=== PATIENT | female | born 1990 | race Caucasian/White ===

== ENCOUNTER 2016-11-20 23:15 | Outpatient (CLI) | payer MEDICAID ==
[~2016-11-20] VITALS: Ht 152.4 cm; Wt 85.8 kg
[~2016-11-20 23:15] MED LIST: PREN-39 PO
[2016-11-21 00:35] VITALS: BP 107/58; PULSE 100; RESP 18
[2016-11-21 01:45] LABS: ADD UMIC YES; UR BILIRUBIN (Dip) NEGATIVE (NEGATIVE); UR BLOOD (Dip) 2+ (NEGATIVE); UR CLARITY SLIGHTLY CLOUDY (CLEAR); UR COLOR LT. YELLOW (YELLOW); UR GLUCOSE (Dip) NEGATIVE (NEGATIVE); UR LEUKOCYTE ESTERASE (Dip) 2+ (NEGATIVE); UR NITRITE (Dip) NEGATIVE (NEGATIVE); UR TOTAL PROTEIN (Dip) NEGATIVE (NEGATIVE); UR UROBILINOGEN (Dip) 0.2 E.U./dL (0.1-1.0)
[2016-11-21 01:47] LABS: UR KETONES (Dip) 1+ (NEGATIVE)
--- NOTE | 2016-11-21 02:08 | RADRPT ---
PROCEDURE: Limited OB ultrasound CLINICAL INDICATION: Rupture of membranes. TECHNIQUE: Limited sonographic evaluation of the gravid uterus was performed to assess the amnioti c fluid volume. COMPARISON: None. FINDINGS: Single live intrauterine with cardiac heart rate of 137 beats per minute is identifi ed. The amniotic -fluid volume is 11.46 cm,. Fetus is in cephalic presentation. The placenta is l ocated left lateral. IMPRESSION: 1. Amniotic fluid volume 11.46 cm. RPTAT: HMVK .Charles Mann MD, Date Time Electronically viewed and signed by .Charles Mann MD, on 11/21/2016 02:08 .K/
[2016-11-21 02:14] LABS: UR BACTERIA OCCASIONAL /HPF (NONE SEEN); UR SQUAMOUS EPITHELIAL CELL FEW /HPF (FEW)
--- NOTE | 2016-11-21 04:04 | TRIAGE ---
OB Triage Datetime Report Generated by CPN: 11/21/2016 04:03 Datetime: 11/21/2016 02:18 Stage of : OB Triage Labor Evaluation Monitor Mode: External Quality: Mild Pattern: Normal: <= 5 Contractions in 10 Minutes Resting Tone [place]: Relaxed Heart Rate FHR Baseline Rate: 130 Monitor Mode: External US FHR Baseline Changes: No Baseline Change Variability: Moderate 6-25 bpm Accelerations: 15X15 Decelerations: None Category: Category I Datetime: 11/21/2016 01:10 Stage of : OB Triage Labor Evaluation Monitor Mode: External Quality: Mild Pattern: Normal: <= 5 Contractions in 10 Minutes Resting Tone [place]: Relaxed Heart Rate FHR Baseline Rate: 130 Monitor Mode: External US FHR Baseline Changes: No Baseline Change Variability: Moderate 6-25 bpm Accelerations: 15X15 Decelerations: None Category: Category I Datetime: 11/21/2016 00:08 Stage of : OB Triage Labor Evaluation Monitor Mode: External Quality: Mild Pattern: Normal: <= 5 Contractions in 10 Minutes Resting Tone [place]: Relaxed Heart Rate FHR Baseline Rate: 130 Monitor Mode: External US FHR Baseline Changes: No Baseline Change Variability: Moderate 6-25 bpm Accelerations: 15X15 Decelerations: None Category: Category I Vaginal Exam Dilatation (cms): 2.5 Effacement (%): 80 Station: -2 Exam By: Hank Allen Amniotic Fluid Amount: None Amniotic Fluid Odor: None Vaginal Bleeding: None Pool: Negative Nitrazine: Negative Cervix, Consistency: Soft Cervix, Position: Posterior Presentation 'A': Cephalic Datetime: 11/20/2016 23:42 Time of Arrival: 11/20/2016 23:10 EGA: 37.4 Arrived By: Wheelchair Arrived From: Home Chief Complaint: c/o ucs and leaking sm amt fluid since am Movement: Present Contractions: Irregular Time Contractions Began: 11/20/2016 16:30 Contractions: Q8-10 Rupture of Membranes: Unsure Vaginal Bleeding: None Vaginal Discharge: Present Recent Sexual Intercouse: Denies Abdominal Trauma: Not Applicable Patient Complaints: Contractions Time Provider Notified: 11/21/2016 00:10 Provider Notified: Dr Amin Initial Plan: EFM, SVE, ROM PLUS, BPP, UA Datetime: 11/20/2016 23:25 Stage of : OB Triage Maternal Assessment Level of Consciousness: Fully Conscious Headache: Denies Blurred Vision: No Respiratory Effort: Unlabored Nausea/Vomiting: Denies RUQ Epigastric Pain: Denies Facial Edema: None Labor Evaluation Monitor Mode: External Resting Tone [place]: Relaxed Heart Rate FHR Baseline Rate: 130 Monitor Mode: External US Pain Assessment Pain Scale: 3 Pain Presence: Intermittent Pain Type: Contraction Pain Location: Abdomen
--- NOTE | 2016-11-21 09:20 | PN ---
Triage Information Date/Time Weeks of Gestation 37w4d : 4 Para: 3 Diabetes: none Hypertention: none Additional information uterine contraactions started 1630 q8-10 min vaginal discharge liquid cold sx for 2days Objective Vital Signs Date Time Temp Pulse Resp B/P Pulse Ox O2 Delivery O2 Flow Rate FiO2 11/21/16 00:35 97.3 100 18 107/58 Room Air Contractions: >10 Minutes Apart Exam VE 2-3 80% -2 re check in 3hr no significant change ROM plus neg spec exam cottage cheese discharge EFM occ U.C U/A ++ leuko estrase wbc 10-25 urine culture sent CVA neg for tenderness Results/Medications Results 24 hrs Laboratory Tests Test 11/20/16 23:30 11/21/16 01:00 Urine Color LT. YELLOW Urine Clarity SLIGHTLY CLOUDY Urine pH Urine Specific [place] Urine Ketones 1+ Urine Nitrite NEGATIVE Urine Bilirubin NEGATIVE Urine Urobilinogen 0.2 E.U./dL Urine Leukocyte Esterase 2+ H Urine Microscopic RBC 2-5 Urine Microscopic WBC 10-25 Urine Squamous Epithelial Cells FEW Urine Calcium Oxalate Crystals FEW Urine Bacteria OCCASIONAL Urine Hemoglobin 2+ H Urine Glucose NEGATIVE Urine Total Protein NEGATIVE Membranes Rupture NEGATIVE Medications cephalexin 500mg q6hr #28 Imaging Results MARCIAL 11.5 Assessment/Plan IUP 37w4d NIL cystitis common cold plan discharge home with routine labor inastructions RTH prn CHAD MARC MD Nov 21, 2016 09:16
[2016-11-22] MEDS ORDERED: CEPH500C PO (19:15)
== END 2016-11-21 03:16 | disposition home or self-care (01) ==
LOC: L-D 23:15 → OBT 23:15
PROVIDERS: ATTEND Obstetrics & Gynecology
DX: O23.13 Infections of bladder in pregnancy, third trimester (principal); Z3A.37 37 weeks gestation of pregnancy
CPT/HCPCS: 76815; 81001; 84112; 87086; Z7500; G0463

== ENCOUNTER 2016-11-22 18:10 | Outpatient (CLI) | payer MEDICAID ==
[~2016-11-22] VITALS: Ht 152.4 cm; Wt 84.7 kg
[2016-11-22 19:12] VITALS: Ht 152.4 cm; Wt 84.7 kg
[2016-11-22 19:13] VITALS: BP 111/62; PULSE 90
[2016-11-22] MEDS ORDERED: CEPH500C PO (19:15)
--- NOTE | 2016-11-22 20:57 | PN ---
Triage Information Date/Time Weeks of Gestation 37 6/7 : 4 Para: 3 Objective Vital Signs Date Time Temp Pulse Resp B/P Pulse Ox O2 Delivery O2 Flow Rate FiO2 11/22/16 19:13 98.3 90 111/62 Heart Rate Comments reactive Contractions: 6-10 Minutes Apart Exam 50/-3 Assessment/Plan at 37 6/7 weeks with contractions, not in active labor -discharge home with labor precautions -f/u with OB PRITESH CHERRY Nov 22, 2016 20:57
== END 2016-11-22 20:55 | disposition home or self-care (01) ==
LOC: OBT 18:10 → L-D 18:10 → OBT 20:55
PROVIDERS: ATTEND Obstetrics & Gynecology
DX: O62.9 Abnormality of forces of labor, unspecified (principal); Z3A.37 37 weeks gestation of pregnancy
CPT/HCPCS: G0463

== ENCOUNTER 2016-12-13 20:17 | Inpatient (IN) | payer MEDICAID ==
[~2016-12-13] VITALS: Ht 152.4 cm; Wt 88.0 kg
[~2016-12-13 20:17] MED LIST changes: +CEPH500C PO
[2016-12-13 20:36] VITALS: Ht 152.4 cm; Wt 88.0 kg
[2016-12-13 20:37] VITALS: BP 111/65; PULSE 90; RESP 18
[2016-12-13] MEDS ORDERED: BUTORPHANOL 2 MG INJ IV PRN (21:30)
[2016-12-13] MEDS ORDERED: AMPICILLIN 2 GM/NS (PMX) 100 ML IV ONE (21:30)
[2016-12-13] MEDS ORDERED: METHYLERGONOVINE 0.2 MG INJ IM PRN (21:30)
[2016-12-13] MEDS ORDERED: CARBOPROST 250 MCG INJ IM PRN (21:30)
[2016-12-13] MEDS ORDERED: MISOPROSTOL 200 MCG TAB PR PRN (21:30)
[2016-12-13] MEDS ORDERED: OXYTOCIN 30 UNITS/LR 500 ML IV PRN (21:30)
[2016-12-13] MEDS ORDERED: ACETAMINOPHEN/CODEINE #3 TAB PO PRN (21:30)
[2016-12-13] MEDS ORDERED: LIDOCAINE 1% (MPF) 30 ML INJ INJ PRN (21:30)
[2016-12-13] MEDS ORDERED: IBUPROFEN 600 MG TAB PO PRN (21:30)
[2016-12-13] MEDS ORDERED: OXYTOCIN 30 UNITS/LR 500 ML IV SCH ×3 (21:30)
[2016-12-13] MEDS ORDERED: LACTATED RINGER'S 1,000 ML IV PRN (21:33)
[2016-12-13] MEDS: LACTATED RINGER'S 1,000 ML IV SCH (22:57)
--- NOTE | 2016-12-13 23:15 | HP ---
Date/Time of Note Date/Time of Note DATE: 12/13/16 TIME: 23:02 OB - History Hx of Present Free Text/Dictation 26y,o uterine contractions since 1200 today at 40w6d VE 3cm 60% -3 UC irregular admitted for expectant management more likely augmentation Chief Complaint: UC's Estimated Due Date: Dec 07, 2016 : 4 Para: 3 Spontaneous : 0 Therapeutic : 0 Obstetrical Complications: None Medical Complications: None Past Family/Social History * Past Medical, Surgical, Family and Obstetric Histories reviewed from chart. Blood Type: Unknown Rubella: unknown RPR/VDRL: Unknown GBS Status: Unknown HBsAG: Unknown OB Admission Exam Vital Signs Vital Signs Vital Signs Date Time Temp Pulse Resp B/P Pulse Ox O2 Delivery O2 Flow Rate FiO2 12/13/16 20:37 98.2 90 18 111/65 Room Air Physical Exam HEENT: WNL Heart: Rhythm Normal Lungs: Clear, Equal Abdomen: WNL Extremities: Normal Reflexes: Normal Cervical Dilatation: 3cm Effacement: Other (60%) Station: -3 Membranes: Intact Amniotic Fluid: Unevaluable Heart Rate: 140's Accelerations: Accelerations Present Decelerations: No Decelerations Varibility: Moderate Contractions on Admission: >10 Minutes Apart Intensity: Mild OB Assessment/Plan Other Assessment: [id number] In early labor Plan: Expectant Management Other plan: CHAD Mcgregor MD Dec 13, 2016 23:12
[2016-12-14 00:08] LABS: ADD SCAN DIFF NO
[2016-12-14 00:12] LABS: BASOPHILS % 0.2 % (0.0-2.0); EOSINOPHILS # 0.2 10^3/ul (0.0-0.5); EOSINOPHILS % 1.8 % (0.0-7.0); HEMOGLOBIN 12.4 g/dl (12.0-16.0); LYMPHOCYTES # 2.7 10^3/ul (0.8-2.9); LYMPHOCYTES % 26.3 % (15.0-51.0); MEAN CORPUSCULAR HEMOGLOBIN 27.3 pg (29.0-33.0); MEAN CORPUSCULAR HGB CONC 32.6 g/dl (32.0-37.0); MEAN CORPUSCULAR VOLUME 83.7 fl (82.0-101.0); MEAN PLATELET VOLUME 12.5 fl (7.4-10.4); MONOCYTE # 0.6 10^3/ul (0.3-0.9); MONOCYTES % 6.3 % (0.0-11.0); NEUTROPHIL # 6.6 10^3/ul (1.6-7.5); PLATELET COUNT 174 10^3/UL (140-415); RED BLOOD COUNT 4.54 10^6/ul (4.20-5.40); RED CELL DISTRIBUTION WIDTH 15.5 % (11.5-14.5); WHITE BLOOD COUNT 10.1 10^3/ul (4.8-10.8)
[2016-12-14 00:27] LABS: INR 0.96; PROTIME 12.8 Sec (12.2-14.2)
--- NOTE | 2016-12-14 01:11 | TRIAGE ---
OB Triage Datetime Report Generated by CPN: 12/14/2016 01:11 Datetime: 12/13/2016 22:46 Assessment Type: Admission Assessment Vaginal Bleeding: Normal Show Maternal Assessment Level of Consciousness: Fully Conscious DTR's/Clonus: DTRs 2+ Headache: Denies Blurred Vision: No Respiratory Effort: Unlabored Breath Sounds, Left: Clear and Equal Breath Sounds, Right: Clear and Equal Nausea/Vomiting: Denies RUQ Epigastric Pain: Denies Lower Extremities Edema: None Degree: None Upper Extremities Edema: None Degree: None Facial Edema: None Fall Risk Assessment History of Falling: (0) No Secondary Diagnosis: (0) No Ambulatory Aid: (0) Bedrest/Nurse Assist IV Therapy: (0) No Gait: (0) Normal/Bedrest/Immobile Mental Status: (0) Oriented to Own Ability Fall Score: 0 Fall Risk Score Definition: No Risk: No action required Labor Evaluation Frequency: 4-7 Duration (sec)2399: 50-100 Quality: Mild Pattern: Normal: <= 5 Contractions in 10 Minutes Resting Tone [place]: Relaxed Heart Rate FHR Baseline Rate: 120 Variability: Moderate 6-25 bpm Accelerations: 15X15 Decelerations: None Category: Category I Pain Assessment Pain Scale: 0 Pain Presence: None/Denies Pain Type: N/A Membrane Status: Intact Datetime: 12/13/2016 22:40 Vaginal Exam Dilatation (cms): 4.0 Effacement (%): 70 Station: -2 Datetime: 12/13/2016 22:15 Labor Evaluation Frequency: 9-11 Monitor Mode: External Duration (sec)2399: 100-180 Quality: Moderate Pattern: Normal: <= 5 Contractions in 10 Minutes Resting Tone [place]: Relaxed Heart Rate FHR Baseline Rate: 130 Monitor Mode: External US Variability: Moderate 6-25 bpm Accelerations: 15X15 Decelerations: Variable Category: Category II Comments: VARIABLE WENT FROM BASELINE TO 110 AND Back to baseline Datetime: 12/13/2016 21:45 Monitor Mode: External Monitor Mode: External US Datetime: 12/13/2016 21:30 Labor Evaluation Frequency: IRREGULAR Monitor Mode: External Duration (sec)2399: 40-120 Quality: Mild Pattern: Normal: <= 5 Contractions in 10 Minutes Resting Tone [place]: Relaxed Heart Rate FHR Baseline Rate: 125 Monitor Mode: External US FHR Baseline Changes: No Baseline Change Variability: Moderate 6-25 bpm Accelerations: 15X15 Decelerations: None Category: Category I Datetime: 12/13/2016 20:44 Vaginal Exam Dilatation (cms): 3.0 Effacement (%): 60 Station: -3 Exam By: Gricelda CHAN RN Vaginal Bleeding: None Cervix, Consistency: Firm Cervix, Position: Posterior Datetime: 12/13/2016 20:26 Stage of : OB Triage Assessment Type: Triage Time of Arrival: 12/13/2016 20:05 EGA: 40.6 Arrived By: Wheelchair Arrived From: Home Chief Complaint: CONTRACTIONS THAT STARTED @ 1200 Movement: Present Contractions: Irregular Time Contractions Began: 12/13/2016 12:00 Rupture of Membranes: Denies Vaginal Bleeding: None Vaginal Discharge: Denies Recent Sexual Intercouse: Denies Abdominal Trauma: Not Applicable Patient Complaints: None Time Provider Notified: 12/13/2016 21:00 Provider Notified: DR MARC Initial Plan: CALL JAIR VERAS Maternal Assessment Level of Consciousness: Fully Conscious DTR's/Clonus: DTRs 2+; No Clonus Headache: Denies Blurred Vision: No Respiratory Effort: Unlabored; Regular Rhythm; Equal Expansion Breath Sounds, Left: Clear and Equal Breath Sounds, Right: Clear and Equal Nausea/Vomiting: Denies RUQ Epigastric Pain: Denies Lower Extremities Edema: None Degree: None Upper Extremities Edema: None Degree: None Facial Edema: None Temperature Route: Oral Fall Risk Assessment History of Falling: (0) No Secondary Diagnosis: (0) No Ambulatory Aid: (0) Bedrest/Nurse Assist IV Therapy: (0) No Gait: (0) Normal/Bedrest/Immobile Mental Status: (0) Oriented to Own Ability Fall Score: 0 Fall Risk Score Definition: No Risk: No action required Monitor Mode: External Monitor Mode: External US Pain Assessment Pain Scale: 0 Datetime: 11/22/2016 20:55 Stage of : OB Triage Datetime: 11/22/2016 20:45 Labor Evaluation Frequency: q 9 min Monitor Mode: External Duration (sec)2399: 50-90 Quality: Mild Pattern: Normal: <= 5 Contractions in 10 Minutes Resting Tone [place]: Relaxed Heart Rate FHR Baseline Rate: 120 Monitor Mode: External US Variability: Moderate 6-25 bpm Accelerations: 15X15 Decelerations: None Category: Category I Pain Assessment Pain Scale: 0 Pain Presence: None/Denies Pain Type: N/A Pain Assessment Comments: pt stated that she does not feels contraction pain . abdomen soft on pal pation Membrane Status: Intact Datetime: 11/22/2016 19:42 Comments: MONITORS OFF Datetime: 11/22/2016 19:35 Labor Evaluation Frequency: IRREGULAR Monitor Mode: External Duration (sec)2399: 60-90 Quality: Mild Pattern: Normal: <= 5 Contractions in 10 Minutes Resting Tone [place]: Relaxed Heart Rate FHR Baseline Rate: 120 Monitor Mode: External US Variability: Moderate 6-25 bpm Accelerations: 15X15 Decelerations: None Category: Category I Pain Assessment Pain Scale: 0 Pain Presence: None/Denies Pain Type: N/A Membrane Status: Intact Datetime: 11/22/2016 18:47 Stage of : OB Triage Assessment Type: Triage Maternal Assessment Level of Consciousness: Fully Conscious DTR's/Clonus: DTRs 2+; No Clonus Headache: Denies Blurred Vision: No Respiratory Effort: Unlabored; Regular Rhythm; Equal Expansion Breath Sounds, Left: Clear and Equal Breath Sounds, Right: Clear and Equal Nausea/Vomiting: Denies RUQ Epigastric Pain: Denies Facial Edema: None Temperature Route: Axillary Fall Risk Assessment History of Falling: (0) No Secondary Diagnosis: (0) No Ambulatory Aid: (0) Bedrest/Nurse Assist IV Therapy: (0) No Gait: (0) Normal/Bedrest/Immobile Mental Status: (0) Oriented to Own Ability Fall Score: 0 Fall Risk Score Definition: No Risk: No action required Labor Evaluation Frequency: 0 Monitor Mode: External Resting Tone [place]: Relaxed Interventions: Sterile Vaginal Exam Heart Rate FHR Baseline Rate: 125 Monitor Mode: External US Variability: Moderate 6-25 bpm Decelerations: None Category: Category II Pain Assessment Pain Scale: 3 Pain Presence: Intermittent Pain Type: Cramping; Contraction Pain Location: Abdomen Pain Goal: 3 Pain Relief Measures: Comfort Measures Vaginal Exam Dilatation (cms): 3.0 Effacement (%): 50 Station: -3 Exam By: Mike BLEVINS Membrane Status: Intact Datetime: 11/22/2016 18:45 Time of Arrival: 11/15/2016 18:04 EGA: 36.6 Arrived By: Ambulatory Arrived From: Home Chief Complaint: C/O UC'S Q 8-10 MIN, DENIES LEAKING OF FLUID OR BLEEDING Movement: Present Contractions: Regular Contractions: 8-10 Rupture of Membranes: Denies Vaginal Discharge: Denies Recent Sexual Intercouse: Denies Abdominal Trauma: Not Applicable Initial Plan: MONITOR, VE Datetime: 11/21/2016 03:00 Stage of : OB Triage FHR Baseline Changes: No Baseline Change Variability: Moderate 6-25 bpm Accelerations: 15X15 Decelerations: None Vaginal Exam Dilatation (cms): 3.0 Effacement (%): 80 Station: -2 Exam By: Hank Allen Datetime: 11/20/2016 23:42 EGA: 37.4
[2016-12-14 01:53] LABS: BARBITURATES Negative (NEGATIVE); BENZODIAZEPINES Negative (NEGATIVE)
[2016-12-14 01:54] LABS: CANNABINOIDS Negative (NEGATIVE); COCAINE Negative (NEGATIVE); OPIATES Negative (NEGATIVE)
[2016-12-14] MEDS: AMPICILLIN 1 GM/NS (PMX) 50 ML IV SCH ×2 (02:47→06:17)
[2016-12-14] MEDS: LACTATED RINGER'S 1,000 ML IV SCH (02:56)
--- NOTE | 2016-12-14 07:07 | LDN ---
Date/Time of Note Date/Time of Note DATE: 12/14/16 TIME: 07:01 Delivery Summary after placenta delivered ,loosing tale of membrane which was removed by piece s by pieces after sedation with sstadol 2mg complete exploration of uterine cavity with hand only informed the patient with translation by samantha there is possibility of cleaning the utrine cavity in case of heavy bleeding later Weeks of Gestation 41 weeks Placenta Delivered: Spontaneously Meconium: none Episiotomy: No Perineal laceration: 0 Anesthesia type: None Estimated blood loss: 200 Sponge & Needle done & correct: Yes All needle counts correct: Yes Any foreign bodies felt in the: No Problems: Infant Delivery Information Sex Infant Sex: female Apgars 1 Minute: 8 5 Minute: 9 Suctioning Nose & mouth suctioned at tia: Yes Delee suction performed: No Umbilical Cord Umbilical cord with: 3 Vessels Cord presentations: no nuchal cord Cord Blood was obtained: Yes Mother & Baby Disposition Disposition Mom & Baby to Maternity; Good: Yes Mom transferred to: Other () Baby to NICU: No CHAD MARC MD Dec 14, 2016 07:07
[2016-12-14 09:00] VITALS: BP 120/72; PULSE 77; RESP 16
[2016-12-14] MEDS ORDERED: CARBOPROST 250 MCG INJ IM PRN (09:00)
[2016-12-14] MEDS ORDERED: BENZOCAINE 20% 56 ML SPRAY TOP PRN ×2 (09:00)
[2016-12-14] MEDS ORDERED: MISOPROSTOL 200 MCG TAB PR PRN (09:00)
[2016-12-14] MEDS ORDERED: METHYLERGONOVINE 0.2 MG INJ IM PRN (09:00)
[2016-12-14] MEDS ORDERED: WITCH HAZEL/GLYCERIN PAD PR PRN ×2 (09:00)
[2016-12-14] MEDS ORDERED: LANOLIN 7 GM TUBE TOP PRN ×2 (09:00)
[2016-12-14] MEDS ORDERED: ACETAMINOPHEN 325 MG TAB PO PRN (09:00)
[2016-12-14] MEDS ORDERED: OXYTOCIN 30 UNITS/LR 500 ML IV PRN (09:00)
[2016-12-14] MEDS ORDERED: ACETAMINOPHEN/CODEINE #3 TAB PO PRN ×2 (09:00)
[2016-12-14] MEDS ORDERED: ONDANSETRON 4 MG INJ IV PRN (09:00)
[2016-12-14] MEDS ORDERED: ZOLPIDEM 5 MG TAB PO PRN (09:00)
[2016-12-14] MEDS ORDERED: SENNA/DOCUSATE NA (8.6MG/50MG) TAB PO SCH (09:00)
[2016-12-14] MEDS ORDERED: IBUPROFEN 600 MG TAB PO SCH (09:00)
[2016-12-14] MEDS ORDERED: OXYCODONE/ASPIRIN (4.88/325) TAB PO PRN ×4 (09:00)
[2016-12-14] MEDS ORDERED: DIBUCAINE 1% 30 GM OINT PR PRN (09:00)
[2016-12-14] MEDS: SENNA/DOCUSATE NA (8.6MG/50MG) TAB PO SCH ×2 (10:19→20:57)
[2016-12-14] MEDS: OXYTOCIN 30 UNITS/LR 500 ML IV SCH ×2 (10:19→19:00)
[2016-12-14] MEDS: IBUPROFEN 600 MG TAB PO SCH ×2 (12:10→17:37)
[2016-12-14] MEDS: CEPHALEXIN 500 MG CAP PO SCH ×2 (12:10→17:38)
[2016-12-14 16:00] VITALS: BP 109/66; PULSE 77; RESP 16
[2016-12-14 20:00] VITALS: BP 107/69; PULSE 81; RESP 18
[2016-12-15] VITALS: BP 106/70; PULSE 78; RESP 18
[2016-12-15] MEDS: CEPHALEXIN 500 MG CAP PO SCH ×4 (00:06→18:08)
[2016-12-15 04:00] VITALS: BP 129/76; PULSE 74; RESP 18
[2016-12-15] MEDS: IBUPROFEN 600 MG TAB PO SCH ×4 (05:51→18:09)
[2016-12-15 07:37] LABS: ADD SCAN DIFF NO
[2016-12-15 07:43] LABS: BASOPHILS % 0.2 % (0.0-2.0); EOSINOPHILS # 0.2 10^3/ul (0.0-0.5); EOSINOPHILS % 1.4 % (0.0-7.0); HEMATOCRIT 36.3 % (37.0-47.0); HEMOGLOBIN 11.8 g/dl (12.0-16.0); LYMPHOCYTES # 2.4 10^3/ul (0.8-2.9); MEAN CORPUSCULAR HEMOGLOBIN 27.3 pg (29.0-33.0); MEAN CORPUSCULAR HGB CONC 32.5 g/dl (32.0-37.0); MEAN PLATELET VOLUME 11.9 fl (7.4-10.4); MONOCYTE # 0.6 10^3/ul (0.3-0.9); MONOCYTES % 5.4 % (0.0-11.0); NEUTROPHILS % 71.5 % (39.0-77.0); PLATELET COUNT 155 10^3/UL (140-415); RED BLOOD COUNT 4.32 10^6/ul (4.20-5.40); RED CELL DISTRIBUTION WIDTH 15.2 % (11.5-14.5); WHITE BLOOD COUNT 11.3 10^3/ul (4.8-10.8)
[2016-12-15 08:40] VITALS: BP 111/71; RESP 17
[2016-12-15] MEDS: SENNA/DOCUSATE NA (8.6MG/50MG) TAB PO SCH ×2 (09:04→21:00)
--- NOTE | 2016-12-15 12:12 | QN ---
Documentation Comment Post normal vaginal delivery day 1 Afebrile vital signs are abdomen soft uterus firm lochia normal extremity normal Laboratory Tests Test 12/15/16 06:54 White Blood Count 11.310^3/ul Red Blood Count 4.3210^6/ul Hemoglobin 11.8g/dl Hematocrit 36.3% Mean Corpuscular Volume 84.0fl Mean Corpuscular Hemoglobin 27.3pg Mean Corpuscular Hemoglobin Concent 32.5g/dl Red Cell Distribution Width 15.2% Platelet Count 71597^3/UL Mean Platelet Volume 11.9fl Neutrophils % 71.5% Lymphocytes % 21.0% Monocytes % 5.4% Eosinophils % 1.4% Basophils % 0.2% Nucleated Red Blood Cells % 0.0/100WBC Neutrophils # 8.010^3/ul Lymphocytes # 2.410^3/ul Monocytes # 0.610^3/ul Eosinophils # 0.210^3/ul Basophils # 0.010^3/ul Nucleated Red Blood Cells # 0.010^3/ul Current Medications Medications (Trade) Dose Ordered Sig/Kika Route PRN Reason Start Time Stop Time Status Last Admin Dose Admin Lactated Ringer's 1,000 ml @ 125 mls/hr Q8H IV 12/13/16 21:18 12/14/16 08:56 DC 12/14/16 02:56 Ampicillin 100 ml @ 100 mls/hr ONCE ONCE IV 12/13/16 21:30 12/13/16 22:29 DC 12/13/16 22:57 Ampicillin 50 ml @ 100 mls/hr Q4H IV 12/14/16 01:30 12/14/16 08:56 DC 12/14/16 06:17 Oxytocin/Lactated Ringer's 500 ml @ 0 mls/hr TITRATE IV 12/13/16 21:30 12/14/16 08:56 DC 12/13/16 23:41 Butorphanol Tartrate (Stadol) 2 mg Q2H PRN IV PAIN 12/13/16 21:30 12/14/16 08:55 DC 12/14/16 06:40 Lidocaine 30 ml 30 ml ONCE PRN INJ EPISIOTOMY/TEARING 12/13/16 21:30 12/14/16 08:55 DC Oxytocin/Lactated Ringer's 500 ml @ 125 mls/hr ONCE -MAY REPEAT X1 IV 12/13/16 21:30 12/14/16 08:55 DC 12/14/16 06:56 Oxytocin/Lactated Ringer's 500 ml @ 125 mls/hr ONCE IV 12/13/16 21:30 12/14/16 08:55 DC Ibuprofen (Motrin) 600 mg ONCE PRN PO Mild Pain (Pain Score 1-3) 12/13/16 21:30 12/14/16 08:55 DC Acetaminophen/ Codeine Phosphate 2 tab 2 tab ONCE PRN PO Moderate to Severe Pain (4-10) 12/13/16 21:30 12/14/16 08:55 DC Lactated Ringer's 1,000 ml @ 2,000 mls/hr Q30M PRN IV PRE-EPIDURAL BOLUS 12/13/16 21:33 12/14/16 08:55 DC Oxytocin/Lactated Ringer's 500 ml @ 0 mls/hr ONCE PRN IV For Hemorrhage Management 12/13/16 21:30 12/14/16 08:55 DC Methylergonovine Maleate (Methergine) 0.2 mg ONCE PRN IM VAGINAL BLEEDING 12/13/16 21:30 12/14/16 08:56 DC Carboprost Tromethamine (Hemabate) 250 mcg ONCE PRN IM VAGINAL BLEEDING 12/13/16 21:30 12/14/16 08:56 DC Misoprostol 1000 mcg 1,000 mcg ONCE PRN [place] VAGINAL BLEEDING 12/13/16 21:30 12/14/16 08:56 DC Oxytocin/Lactated Ringer's 500 ml @ 125 mls/hr Q4H IV 12/14/16 08:49 12/14/16 16:48 DC 12/14/16 10:19 Ibuprofen (Motrin) 600 mg Q6 PO 12/14/16 09:00 12/14/16 09:00 DC Acetaminophen (Tylenol Tab) 650 mg Q4H PRN PO PAIN LEVEL 1-5 12/14/16 09:00 Acetaminophen/ Codeine Phosphate (Tylenol No.3) 1 tab Q4H PRN PO PAIN LEVEL 1-5 12/14/16 09:00 Acetaminophen/ Codeine Phosphate (Tylenol No.3) 2 tab Q4H PRN PO PAIN LEVEL 6-10 12/14/16 09:00 Oxycodone/Aspirin (Percodan) 1 tab Q3H PRN PO PAIN LEVEL 1-5 12/14/16 09:00 12/14/16 09:00 DC Oxycodone/Aspirin (Percodan) 2 tab Q3H PRN PO PAIN LEVEL 6-10 12/14/16 09:00 Ondansetron HCl (Zofran Inj) 4 mg Q6H PRN IV NAUSEA AND/OR VOMITING 12/14/16 09:00 Senna/Docusate Sodium (Senokot-S) 1 tab BID PO 12/14/16 09:00 12/14/16 09:00 DC Witch Kim/ Glycerin (Tucks Pads) 1 pad BEDSIDE MEDICATION PRN [place] HEMORRHOID/EPISIOTMY PAIN 12/14/16 09:00 12/14/16 09:00 DC Benzocaine (Dermoplast [place]) 1 spray BEDSIDE MEDICATION PRN TOP HEMORRHOID/EPISIOTMY PAIN 12/14/16 09:00 12/14/16 09:00 DC Dibucaine (Nupercainal) 1 applic BEDSIDE MEDICATION PRN [place] HEMORRHOID/EPISIOTMY PAIN 12/14/16 09:00 Lanolin ([id number]-I-Xqundl) 1 applic BEDSIDE MEDICATION PRN TOP BEDSIDE FOR RAJESH TO NIPPLES 12/14/16 09:00 12/14/16 09:00 DC Measles/Mumps/ Rubella Vaccine Live (Mmr Ii Vaccine) 0.5 ml ONCE ONCE SC* 12/16/16 09:00 12/16/16 09:01 Cephalexin (Keflex) 500 mg Q6 PO 12/14/16 12:00 12/15/16 05:51 Ibuprofen (Motrin) 600 mg Q6 PO 12/14/16 12:00 12/15/16 05:51 Oxycodone/Aspirin (Percodan) 1 tab Q3H PRN PO PAIN LEVEL 1-5 12/14/16 09:00 Oxycodone/Aspirin (Percodan) 2 tab Q3H PRN PO PAIN LEVEL 6-10 12/14/16 09:00 12/14/16 09:00 DC Zolpidem Tartrate (Ambien) 5 mg QHS PRN PO INSOMNIA 12/14/16 09:00 Senna/Docusate Sodium (Senokot-S) 1 tab BID PO 12/14/16 09:00 12/15/16 09:04 Witch [place]/ Glycerin (Tucks Pads) 1 pad BEDSIDE MEDICATION PRN [place] HEMORRHOID/EPISIOTMY PAIN 12/14/16 09:00 Benzocaine (Dermoplast [place]) 1 spray BEDSIDE MEDICATION PRN TOP HEMORRHOID/EPISIOTMY PAIN 12/14/16 09:00 12/14/16 10:17 Lanolin (Knh-Y-Tnqsmh) 1 applic BEDSIDE MEDICATION PRN TOP BEDSIDE FOR RAJESH TO NIPPLES 12/14/16 09:00 12/14/16 10:17 Diphtheria/ Tetanus/Acell Pertussis 0.5 ml 0.5 ml ONCE ONCE IM* 12/16/16 09:00 12/16/16 09:01 Oxytocin/Lactated Ringer's 500 ml @ 0 mls/hr ONCE PRN IV For Hemorrhage Management 12/14/16 09:00 Methylergonovine Maleate (Methergine) 0.2 mg ONCE PRN IM VAGINAL BLEEDING 12/14/16 09:00 Carboprost Tromethamine (Hemabate) 250 mcg ONCE PRN IM VAGINAL BLEEDING 12/14/16 09:00 Misoprostol (Cytotec) 1,000 mcg ONCE PRN [place] VAGINAL BLEEDING 12/14/16 09:00 ALEA ARMSTRONG MD Dec 15, 2016 12:12
[2016-12-15 16:00] VITALS: BP 109/64; PULSE 78; RESP 16
[2016-12-15 20:10] VITALS: BP 111/60; PULSE 81; RESP 18
[2016-12-16 04:00] VITALS: BP 112/67; PULSE 72; RESP 18
[2016-12-16] MEDS: IBUPROFEN 600 MG TAB PO SCH ×3 (06:07→12:19)
[2016-12-16] MEDS: CEPHALEXIN 500 MG CAP PO SCH ×3 (06:07→12:19)
[2016-12-16 08:00] VITALS: BP 110/62; PULSE 68; RESP 18
[2016-12-16] MEDS: SENNA/DOCUSATE NA (8.6MG/50MG) TAB PO SCH (09:00)
[2016-12-16] MEDS ORDERED: MEASLES,MUMPS,RUBELLA VACCINE INJ SC* ONE (09:00)
[2016-12-16] MEDS ORDERED: DIPHTH/TET/ACEL PERTUSS (ADULT) 0.5 ML VIAL IM* ONE (09:00)
--- NOTE | 2016-12-16 13:02 | DS ---
Date/Time of Note Date/Time of Note DATE: 12/16/16 TIME: 13:01 Obstetrical Discharge Record Final Diagnosis Final Diagnosis: Term delivered Vaginal Delivery Obstetrical Delivery: Spontaneous Condition on Discharge Physical Assessment Voiding: Yes Bowel Movement: Yes Breast: Soft, non-tender Fundus: Firm Patient Condition: Stable LORENZO SUTTON MD Dec 16, 2016 13:01
== END 2016-12-16 17:02 | disposition home or self-care (01) | DRG 775 ==
LOC: OBT 20:17 → L-D 20:18 → OBT 21:53 → L-D 22:20 → PP1 12-14 09:49
PROVIDERS: ADMIT Obstetrics & Gynecology; ATTEND Obstetrics & Gynecology
PROC: 10E0XZZ Delivery of Products of Conception, External Approach (ICD-10-PCS; principal; 2016-12-14)
DX: O48.0 Post-term pregnancy (principal); Z37.0 Single live birth; Z3A.41 41 weeks gestation of pregnancy
CPT/HCPCS: 80307; 85025; 85610; 85730; 86592; 86703; 86762; 86900; 86901; 87340; 90715; G0463; J0290; J0595; J2590; J7120